=== PATIENT | female | born 1985 | race Caucasian/White ===

== ENCOUNTER → 2023-02-11 12:00 | Outpatient (CLI) | payer BC, SELFPAY ==
--- NOTE | ~2023-02-11 | XR_ITS ---
Clinical Indication: Nonspecific abnormal finding of lung field PA and lateral views of the chest: Comparison: None Findings: The lungs are clear, without evidence of focal consolidation or pleural effusion. Cardiome diastinal silhouette is within normal limits. Bones and soft tissues are unremarkable. Impression: Normal chest. Reviewed, dictated and finalized at location . Impression: Normal chest.
== END ==
PROVIDERS: PCP Nurse Practitioner; Visit Provider Nurse Practitioner
DX: R91.8 Other nonspecific abnormal finding of lung field (principal)
CPT/HCPCS: 71046

== ENCOUNTER 2023-07-21 01:24 | Day surgery (SDC) | payer BC, SELFPAY ==
[2023-07-09 10:50] VITALS: BMI 42.3
--- NOTE | 2023-07-09 10:59 | SUR.PREOP ---
Report to the Outpatient Waiting Room, entrance under the green pavilion located off [facility], at time 0730 on date 07/21/23. Planned Procedure Time: 0930. Time changes happen often and if your time is changed the preop area will call you the afternoon before. - You and your visitor will be asked to self-screen and do not enter if you have any COVID symptoms. - A mask is optional within the hospital at this time. Patients may have clear liquids (water, carbonated beverages, clear teas, apple juice) until 3 hours prior to surgery with a maximum of 20 ounces. before 6:30am - No food from midnight until time of surgery - Infants may have breast milk until 4 hours before surgery, infant formula 6 hours prior to surgery. - Children will be allowed to drink immediately following surgery. If applicable, please bring a bottle or sippy cup to assist with drinking. Juice, water, soda, and popsicles are readily available. For infants on formula, please bring formula the day of surgery. Pacifiers are allowed. Take the following medications with a SIP of water the morning of surgery: ____hold morning med DO NOT STOP ANY OF YOUR OTHER PRESCRIPTION MEDICATIONS PRIOR TO SURGERY ?EXCEPT THE FOLLOWING Medications to discontinue per physician Date to take last dose Please no make-up, nail grenadian, hairspray, perfume, deodorant, or body powder the day of surgery. No jewelry (including any body piercings) or valuables the day of surgery, leave them at home. Please take a shower or bath the night before, or the morning of, surgery with an antibacterial soap. Wear comfortable, loose fitting clothing. Children are encouraged to wear pajamas. - Jewelry must be removed prior to entering the operating room. Rings and piercings that are not removed may be cut off. - The hospital will not accept responsibility for valuables. - Please leave all valuables, including medications, at home the day of surgery. If you are going home after surgery, a licensed automation driver must drive you home. - NO public transportation without another adult if you receive anesthesia. - We recommend that an adult stay with you for 24 hours following discharge. - We also recommend that you do not drive, make important decision, drink alcoholic beverages, or take any drugs that were not prescribed by your health care provider for at least 24 hours after your discharge time. For Pediatric surgeries, we recommend two adults accompany the child home. Follow any additional instructions given to you from your surgeon. If you or anyone in your household have experienced Covid symptoms in the past week, please notify your surgeon or the nurse liaison at the phone number below for possible testing. Telephone instructions given to __patient__and asked if any additional questions and then verbalized understanding. Patient advised to call surgeon office or pre surgery nurse liaison [phone] if any additional questions.
[2023-07-21] MEDS: ACETAMINOPHEN 500 MG TABLET 1000 MG PO (07:34)
--- NOTE | 2023-07-21 07:36 | WPDHPUPDATE1 ---
History and Physical Update Update Date/Time: 07/21/23 07:36 History and Physical has been reviewed, including an updated exam of the patient. There are NO changes in the patient's condition. Risks, benefits, and alternatives have been discussed and questions answered. Patient agrees to proceed with procedure.
--- NOTE | 2023-07-21 07:36 | PM.HPGS ---
History of Present Illness History of Present Illness Consent: Risks, benefits, and alternatives have been discussed and questions answered. Patient agrees to proceed with procedure. Chief complaint: Moderate dysplasia of the cervix Narrative: Ping Jason is a 37 year old female here for outpatient LEEP with top-hat. Patient with longstanding abnormal Pap smears. Most recently the patient has had a Pap smear showing atypical squamous cells of undetermined significance cannot exclude high-grade. Colposcopic biopsy reveals a normal ectocervix however endocervix curettage reveals moderate squamous dysplasia. It was recommended to undergo LEEP conization. Risks of infection, bleeding, recurrence and persistence of disease were reviewed. Risks to future including cervical incompetence and stenosis were reviewed. Patient has a current IUD with the strings previously cut. Patient was informed the strings if there and the cervical canal would be cut even shorter making the IUD harder to remove. Patient is aware and agrees to proceed. Review of Systems Review of Systems: not repeated day of surgery; patient states no changes in status PMFSH Past Medical History Medical History (Updated 07/21/23 @ 07:42 by Kerry Parikh MD) Asthma Surgical History Surgical History (Updated 07/21/23 @ 07:41 by Kerry Parikh MD) History of elective X3 History of loop electrical excision procedure (LEEP) With top hat 2020 BEN 2 with negative margins Social History Social History Years smoked: 20 Smoking status: Current every day smoker Tobacco type: cigarettes Alcohol use details: occasionally Substance use type: does not use Living arrangements: alone Spiritual care concerns: No Meds Home Medications and Allergies Home Medications Medication Instructions Recorded Confirmed Type albuterol sulfate 90 mcg/actuation 2 inh inhalation QID PRN Shortness 11/10/19 07/09/23 History aerosol inhaler (ProAir HFA) Of Breath bupropion HCl 150 mg 24 hr tablet, 150 mg PO DAILY 11/10/19 07/09/23 History extended release loratadine 10 mg tablet (Claritin) 10 mg PO DAILY PRN Allergic 11/10/19 07/09/23 History Symptoms Allergies Allergy/AdvReac Type Severity Reaction Status Date / Time No Known Allergies Allergy Verified 07/21/23 07:29 Exam Const: General: healthy appearing and alert Orientation/consciousness: patient oriented x3 Resp: Effort & Inspection: normal respiratory effort GI: GI Palp: Yes Soft to palpation, No Tenderness to palpation present (GI) and No Palpable mass present : External Female Exam: normal external appearance Speculum Exam - Vagina: normal appearance of the vagina and normal vaginal discharge Speculum Exam - Cervix: normal appearance of the cervix Bimanual exam- vagina & uterus: uterine size normal and consistency normal Bimanual Exam- Adnexa, other: normal adnexae and No adnexal tenderness Neuro: General: patient oriented x3 Assessment and Plan Assessment and plan (1) Moderate cervical dysplasia, histologically confirmed: Code(s): N87.1 - Moderate cervical dysplasia Status: Acute Assessment and Plan: Plan to proceed with LEEP with top-hat due to positive endocervical curettings for moderate dysplasia.
[2023-07-21] MEDS: LACTATED RINGERS 1,000 ML 30 ML IV CONT (07:50)
[2023-07-21 08:00] VITALS: BP 133/87; PULSE 68; RESP 16; TEMP 36.3; O2SAT 99
--- NOTE | 2023-07-21 08:01 | P.PNAN_ITS ---
Anes - Initial Pre Proc Eval Procedure: Operation Date: 07/21/23 09:30 Proposed Procedures p Loop Electrical Excision Procedure - Kerry Parikh MD Date/Time: 07/21/23 08:01 Surgeon: Kerry Parikh MD Pre Op Diagnosis: Moderate dysplasia of the cervix Patient Data Age: 37 Gender: F Height: 1.78 m Weight: 133.81 kg Allergies Allergy/AdvReac Type Severity Reaction Status Date / Time No Known Allergies Allergy Verified 07/21/23 07:29 Home Medications Medication Instructions Recorded Confirmed Type albuterol sulfate 90 mcg/actuation 2 inh inhalation QID PRN Shortness 11/10/19 07/09/23 History aerosol inhaler (ProAir HFA) Of Breath bupropion HCl 150 mg 24 hr tablet, 150 mg PO DAILY 11/10/19 07/09/23 History extended release loratadine 10 mg tablet (Claritin) 10 mg PO DAILY PRN Allergic 11/10/19 07/09/23 History Symptoms Patient hx anesthesia problems: none Family hx anesthesia problems: none Results Review: All pre-operative results and documents have been reviewed as part of the pre- operative evaluation. [facility] Past Medical History Medical History (Updated 07/21/23 @ 07:42 by Kerry Parikh MD) Asthma Surgical History Surgical History (Updated 07/21/23 @ 07:41 by Kerry Parikh MD) History of elective X3 History of loop electrical excision procedure (LEEP) With top hat 2020 BEN 2 with negative margins Social History Social History Years smoked: 20 Smoking status: Current every day smoker Tobacco type: cigarettes Alcohol use details: occasionally Substance use type: does not use Living arrangements: alone Spiritual care concerns: No Anes - Eval Final PreProcedure Day of Procedure 07/21/23 08:01 Patient weight: morbidly obese Heart: regular rate and rhythm Lungs: clear to auscultation Airway: Mallampati scale class II Neurological: alert and oriented Last oral intake: >/= 8 hours ASA classification: III Emergent: no Anesthetic plan: proceed Anesthesia type and monitoring: general GIVS and standard monitoring Results Review: All pre-operative results and documents have been reviewed as part of the pre- operative evaluation. Informed Consent: The patient's anesthetic plan and its attendant risks and benefits were discussed with the patient/family/POA. Questions were solicited and answers provided to the satisfaction of the patient/family/POA.
[2023-07-21] MEDS: LIDO 1%/EPINEPHRINE 1:100,000 20 ML VIAL 10 ML INFILTRATE (10:00)
--- NOTE | 2023-07-21 10:11 | W.PM.PROC2 ---
Procedure Note - Detailed Date of Procedure 07/21/23 Pre-op Diagnosis Moderate dysplasia of the cervix on endocervical curetting Post-op Diagnosis Same Procedure Performed LEEP with top-hat Surgeon Kerry Parikh MD Anesthesia MAC and Local Findings Grossly normal appearance Description of Procedure The patient was taken to the operating room and placed under anesthesia in the dorsal lithotomy position. She was prepped and draped usual sterile fashion. Coated bivalve speculum was placed in the vagina and cervix is injected in each quadrant with 1% lidocaine with epinephrine. Total of 10cc is utilized. The 2x1cm loop was then used at 60 w of cutting power to perform a single pass LEEP. A 1x1 loop was then utilized to perform a single pass top-hat. Both specimens are marked at 12 with suture. Monsel's solution is placed on the cone bed with good hemostasis. All instruments are removed. Sponge, needle, and instrument counts are correct per the OR staff. The patient was awakened from anesthesia and taken to recovery in stable condition Estimated Blood Loss 5 Drains No Packing No Pathology Yes (LEEP marked at 12; top hat marked at 12) Complications No immediate complications Condition Stable Disposition PACU
[2023-07-21 10:12] VITALS: BP 112/66; PULSE 61; RESP 14; O2SAT 95
[2023-07-21 10:40] VITALS: BP 115/67; PULSE 49; RESP 14; O2SAT 95
[2023-07-21] MEDS: oxyCODONE HCL (*CRX) 5 MG TAB IR PO (11:04)
[2023-07-21 11:10] VITALS: BP 118/67; PULSE 50; RESP 14
== END 2023-07-21 11:30 | disposition home or self-care (01) ==
PROVIDERS: PCP Nurse Practitioner; Visit Provider Obstetrics & Gynecology Gynecology
PROC: 0UBC7ZZ Excision of Cervix, Via Natural or Artificial Opening (ICD-10-PCS; CPT 57522; principal; 2023-07-21 09:30)
DX: N87.1 Moderate cervical dysplasia (principal); N72 Inflammatory disease of cervix uteri; N88.8 Other specified noninflammatory disorders of cervix uteri; J45.909 Unspecified asthma, uncomplicated; F17.210 Nicotine dependence, cigarettes, uncomplicated; E66.01 Morbid (severe) obesity due to excess calories; Z68.41 Body mass index [BMI] 40.0-44.9, adult; Z79.51 Long term (current) use of inhaled steroids; Z87.410 Personal history of cervical dysplasia
CPT/HCPCS: 57522; 88307; 88342; A9270; J1100; J1885; J2250; J2405; J2704; J3010; J7120

== ENCOUNTER 2024-06-21 01:55 | Day surgery (SDC) | payer BC, SELFPAY ==
[2024-06-14 15:26] VITALS: BMI 43.0
--- NOTE | 2024-06-14 15:53 | PC.NURSE ---
Report to the Outpatient Waiting Room, entrance under the green pavilion located off [facility], at 1030 on 06-21-24. Planned Procedure Time: 1230.? Time changes happen often and if your time is changed the preop area will call you the afternoon before. - You and your visitor will be asked to self-screen and do not enter if you have any COVID symptoms. Please call surgeon if you need to reschedule. - A mask is optional within the hospital at this time. Patients may have clear liquids (water, carbonated beverages, clear teas, apple juice) until 3 hours prior to surgery with a maximum of 20 ounces. 0930 - No food from midnight until time of surgery and no smoking - Infants may have breast milk until 4 hours before surgery, formula 6 hours prior to surgery. - Children will be allowed to drink immediately following surgery.? If applicable, please bring a bottle or sippy cup to assist with drinking. Juice, water, soda, and popsicles are readily available.? For infants on formula, please bring formula the day of surgery.? Pacifiers are allowed. Take only the following medications with a SIP of water on the morning of surgery: None DO NOT STOP ANY OF YOUR OTHER PRESCRIPTION MEDICATIONS PRIOR TO SURGERY EXCEPT THE FOLLOWING Medications to discontinue per physician: Vitamins and supplements Date to take last dose: 06-18-24 Please no make-up, nail korean, hairspray, perfume, deodorant, or body powder the day of surgery.? No jewelry (including any body piercings) or valuables the day of surgery, leave them at home.? Please take a shower or bath the night before, or the morning of, surgery with an antibacterial soap.? Wear comfortable, loose fitting clothing.? Children are encouraged to wear pajamas. - Jewelry must be removed prior to entering the operating room.? Rings and piercings that are not removed may be cut off. - The hospital will not accept responsibility for valuables.? - Please leave all valuables, including medications, at home the day of surgery. If you are going home after surgery, a licensed special events driver must drive you home.? - NO public transportation without another adult if you receive anesthesia. - We recommend that an adult stay with you for 24 hours following discharge. - We also recommend that you do not drive, make important decision, drink alcoholic beverages, or take any drugs that were not prescribed by your health care provider for at least 24 hours after your discharge time. For Pediatric surgeries, we recommend two adults accompany the child home. Follow any additional instructions given to you from your surgeon. Telephone instructions given to Ping Jason and asked if any additional questions and then verbalized understanding. Patient advised to call surgeon office or pre surgery nurse liaison [phone] if any additional questions.
--- NOTE | 2024-06-20 15:47 | P.PNAN_ITS ---
Anes - Eval Pre Procedure Procedure: Operation Date: 06/21/24 12:30 Proposed Procedures p Loop Electrical Excision Procedure with Top Hat - Kerry Parikh MD Date/Time: 06/20/24 15:47 Pre Op Diagnosis: BEN 3 Patient Data Age: 38 Gender: F Height: 1.78 m Weight: 136.08 kg Allergies Allergy/AdvReac Type Severity Reaction Status Date / Time No Known Allergies Allergy Verified 06/14/24 15:20 Home Medications Medication Instructions Recorded Confirmed Type loratadine 10 mg tablet (Claritin) 10 mg PO DAILY PRN Allergic 11/10/19 06/14/24 History Symptoms inulin 2 gram chewable tablet 2 g PO DAILY PRN Constipation 06/14/24 06/14/24 History (Fiber Gummies) levonorgestrel 21 mcg/24 hr (up to 1 device intrauterine ONCE 06/14/24 06/14/24 History 8 years) 52 mg intrauterine device (Mirena) montelukast 10 mg tablet 10 mg PO HS PRN asthma 06/14/24 06/14/24 History (Singulair) Patient hx anesthesia problems: none Family hx anesthesia problems: none Results Review: All pre-operative results and documents have been reviewed as part of the pre- operative evaluation. [facility] Past Medical History Medical History Asthma Surgical History Surgical History History of elective X3 History of loop electrical excision procedure (LEEP) With top hat 2020 BEN 2 with negative margins Social History Social History Smoking packs per day: 0.5 Smoking cigarettes per day: 10.0 Years smoked: 16 Smoking pack-years: 8.00 Smoking status: Current every day smoker Tobacco type: cigarettes Second hand tobacco smoke exposure: No Alcohol intake: current Alcohol use details: socially Substance use: never Substance use type: does not use Living arrangements: alone Spiritual care concerns: No Exam Day of Procedure 06/20/24 15:47
[2024-06-21] VITALS (7 sets, daily range): BP systolic 104–143; BP diastolic 63–73; PULSE 50–80; RESP 16–19; TEMP 36.6; O2SAT 94–100; BMI 44.5
--- NOTE | 2024-06-21 07:39 | WPDHPUPDATE1 ---
History and Physical Update Update Date/Time: 06/21/24 07:39 History and Physical has been reviewed, including an updated exam of the patient. There are NO changes in the patient's condition. Risks, benefits, and alternatives have been discussed and questions answered. Patient agrees to proceed with procedure.
--- NOTE | 2024-06-21 07:39 | PM.HPGS ---
History of Present Illness History of Present Illness Consent: Risks, benefits, and alternatives have been discussed and questions answered. Patient agrees to proceed with procedure. Chief complaint: BEN 3 Narrative: Ping Jason is a 38 year old female with a longstanding history cervical dysplasia. Patient is status post LEEP in 2019 for BEN 2 with negative margins, LEEP in with BEN 3 with negative margins, now with BEN 3 on endocervical curettings. Due to her not having children and still considering patient declined hysterectomy. Plan to proceed with a LEEP and top-hat. Risks of infection, bleeding, future complications ( cervical incompetence, stenosis), and recurrent disease are reviewed. Patient voices understanding and agrees to proceed. Review of Systems Review of Systems: not repeated day of surgery; patient states no changes in status PMFSH Past Medical History Medical History (Updated 06/21/24 @ 07:42 by Kerry Parikh MD) Asthma Surgical History Surgical History (Updated 06/21/24 @ 07:41 by Kerry Parikh MD) History of elective X3 History of loop electrical excision procedure (LEEP) With top hat 2019 BEN 2 with negative margins With top-hat 2022 BEN 3 with negative margins Social History Social History Smoking packs per day: 0.5 Smoking cigarettes per day: 10.0 Years smoked: 16 Smoking pack-years: 8.00 Smoking status: Current every day smoker Tobacco type: cigarettes Second hand tobacco smoke exposure: No Alcohol intake: current Alcohol use details: socially Substance use: never Substance use type: does not use Living arrangements: alone Spiritual care concerns: No Meds Home Medications and Allergies Home Medications Medication Instructions Recorded Confirmed Type loratadine 10 mg tablet (Claritin) 10 mg PO DAILY PRN Allergic 11/10/19 06/14/24 History Symptoms inulin 2 gram chewable tablet 2 g PO DAILY PRN Constipation 06/14/24 06/14/24 History (Fiber Gummies) levonorgestrel 21 mcg/24 hr (up to 1 device intrauterine ONCE 06/14/24 06/14/24 History 8 years) 52 mg intrauterine device (Mirena) montelukast 10 mg tablet 10 mg PO HS PRN asthma 06/14/24 06/14/24 History (Singulair) Allergies Allergy/AdvReac Type Severity Reaction Status Date / Time No Known Allergies Allergy Verified 06/14/24 15:20 Exam Const: General: healthy appearing and alert Orientation/consciousness: patient oriented x3 Resp: Effort & Inspection: normal respiratory effort GI: GI Palp: Yes Soft to palpation, No Tenderness to palpation present (GI) and No Palpable mass present : External Female Exam: normal external appearance Speculum Exam - Vagina: normal appearance of the vagina and normal vaginal discharge Speculum Exam - Cervix: normal appearance of the cervix Bimanual exam- vagina & uterus: uterine size normal and consistency normal Bimanual Exam- Adnexa, other: normal adnexae and No adnexal tenderness Neuro: General: patient oriented x3 Assessment and Plan Assessment and plan (1) Severe cervical dysplasia: Code(s): 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
[2024-06-21] MEDS: ACETAMINOPHEN 500 MG TABLET 1000 MG PO (11:10)
[2024-06-21] MEDS: LACTATED RINGERS 1,000 ML 30 ML IV CONT (11:10)
[2024-06-21 11:13] LABS: BEDSIDEPREGUCG Negative (Negative)
--- NOTE | 2024-06-21 11:21 | WPDANESEPPF ---
Anes - Initial Pre Proc Eval Procedure: Operation Date: 06/21/24 12:30 Proposed Procedures p Loop Electrical Excision Procedure with Top Hat - Kerry Parikh MD Date/Time: 06/21/24 11:21 Surgeon: Kerry Parikh MD Pre Op Diagnosis: BEN 3 Patient Data Age: 38 Gender: F Height: 1.78 m Weight: 140.9 kg Last Vital Signs Temp 36.6 C 06/21/24 11:08 Pulse 80 06/21/24 11:08 BP 143/72 H 06/21/24 11:08 Pulse Ox 98 06/21/24 11:08 O2 Del Method Room Air 06/21/24 11:08 Allergies Allergy/AdvReac Type Severity Reaction Status Date / Time No Known Allergies Allergy Verified 06/14/24 15:20 Home Medications Medication Instructions Recorded Confirmed Type loratadine 10 mg tablet (Claritin) 10 mg PO DAILY PRN Allergic 11/10/19 06/14/24 History Symptoms inulin 2 gram chewable tablet 2 g PO DAILY PRN Constipation 06/14/24 06/14/24 History (Fiber Gummies) levonorgestrel 21 mcg/24 hr (up to 1 device intrauterine ONCE 06/14/24 06/14/24 History 8 years) 52 mg intrauterine device (Mirena) montelukast 10 mg tablet 10 mg PO HS PRN asthma 06/14/24 06/14/24 History (Singulair) Laboratory Tests 06/21/24 11:08 POC Urine HCG, Qual Negative (Negative) Patient hx anesthesia problems: none Family hx anesthesia problems: none Results Review: All pre-operative results and documents have been reviewed as part of the pre-operative evaluation. [facility] Past Medical History Medical History (Updated 06/21/24 @ 11:21 by Bryan Andrade MD) Asthma Morbid obesity Surgical History Surgical History History of elective X3 History of loop electrical excision procedure (LEEP) With top hat 2019 BEN 2 with negative margins With top-hat 2022 BEN 3 with negative margins Social History Social History Smoking packs per day: 0.5 Smoking cigarettes per day: 10.0 Years smoked: 16 Smoking pack-years: 8.00 Smoking status: Current every day smoker Tobacco type: cigarettes Second hand tobacco smoke exposure: No Alcohol intake: current Alcohol use details: socially Substance use: never Substance use type: does not use Living arrangements: alone Spiritual care concerns: No Anes - Eval Final PreProcedure Day of Procedure 06/21/24 11:21 Patient weight: morbidly obese Heart: regular rate and rhythm Lungs: clear to auscultation Airway: Mallampati scale class II Neurological: alert and oriented Last oral intake: >/= 8 hours ASA classification: III Emergent: no Anesthetic plan: proceed Anesthesia type and monitoring: general GIVS and standard monitoring Results Review: All pre-operative results and documents have been reviewed as part of the pre-operative evaluation. Informed Consent: The patient's anesthetic plan and its attendant risks and benefits were discussed with the patient/family/POA. Questions were solicited and answers provided to the satisfaction of the patient/family/POA.
[2024-06-21] MEDS: LIDO 1%/EPINEPHRINE 1:100,000 20 ML VIAL 10 ML INFILTRATE (11:50)
--- NOTE | 2024-06-21 12:05 | W.PM.PROC2 ---
Procedure Note - Detailed Date of Procedure 06/21/24 Pre-op Diagnosis BEN 3 on ECC Post-op Diagnosis Same Procedure Performed LEEP with top hat Surgeon Kerry Parikh MD Anesthesia MAC and Local ( 1% lidocaine with epinephrine) Findings scarred cervix Description of Procedure The patient is taken to the operating room and placed under anesthesia in the dorsal lithotomy position. She was sterilely draped. Coated bivalve speculum was placed in the vagina. The cervix was injected in each quadrant with 1% lidocaine with epinephrine. Bleeding vessel at 2:00 a.m. was cauterized. The 1x1 loop was used for a single pass LEEP through the center of the endocervical scar. A 2nd pass was taken deeper as a top-hat with the same loop. The orientation was lost on the 1st loop as it fell into the vaginal canal. The top hat was marked at 12:00 p.m.. Excess mucus is noted in the upper endocervix. Monsel's was applied to the cone bed. Good hemostasis is obtained and instruments are removed. Estimated Blood Loss 5 Drains No Packing No Pathology Yes ( LEEP without marking; top hat marked at 12) Complications No immediate complications Condition Stable Disposition PACU
[2024-06-21] MEDS: oxyCODONE HCL (*CRX) 5 MG TAB IR PO (12:45)
== END 2024-06-21 14:04 | disposition home or self-care (01) ==
PROVIDERS: PCP Nurse Practitioner; Visit Provider Obstetrics & Gynecology Gynecology
PROC: 0UBC7ZZ Excision of Cervix, Via Natural or Artificial Opening (ICD-10-PCS; CPT 57522; principal; 2024-06-21 12:30)
DX: C53.1 Malignant neoplasm of exocervix (principal); J45.909 Unspecified asthma, uncomplicated; F17.210 Nicotine dependence, cigarettes, uncomplicated; E66.01 Morbid (severe) obesity due to excess calories; Z68.41 Body mass index [BMI] 40.0-44.9, adult; Z98.890 Other specified postprocedural states; Z97.5 Presence of (intrauterine) contraceptive device
CPT/HCPCS: 57522; 88307; A9270; J2004; J2250; J2405; J2704; J3010; J7120